=== PATIENT | female | born 1935 | race Caucasian/White ===

== ENCOUNTER 2017-10-28 23:50 | Emergency (ER) | payer MEDICARE, OTHER ==
[2017-10-29] MEDS ORDERED: LORazepam 0.5 MG Tab PO ONE (00:39)
--- NOTE | 2017-10-29 00:44 | EDM.PDOC ---
ED HPI GENERAL MEDICAL PROBLEM - General Chief Complaint: ENT Problem Stated Complaint: NOSE BLEED Time Seen by Provider: 10/29/17 00:25 Source of Information: Reports: Patient, Family, Old Records, RN History Limitations: Reports: No Limitations - History of Present Illness INITIAL COMMENTS - FREE TEXT/NARRATIVE: 82 yo female on warfarin presents with R sided nose bleed that began after she was in bed tonight. Her INR last Fri was about 3.3 and her BP was in the 130's. She held a dose of her warfarin after that appt last Friday. She has not missed any of her meds for BP. Here with family for eval of a nose bleed of about 20 minutes duration. 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) (nose pinching, no benefit) Denies Pain Score (Numeric/FACES): 0 - Related Data Allergies Allergy/AdvReac Type Severity Reaction Status Date / Time No Known Allergies Allergy Verified 10/29/17 00:08 Home Meds: Home Meds Acetaminophen 650 mg PO Q4H PRN 10/29/17 [History] Ascorbic Acid [Vitamin C] 500 mg PO DAILY 10/29/17 [History] Biotin 5 mg PO DAILY 10/29/17 [History] Calcium Carbonate/Vitamin D3 [Calcium 600 + Vit D 200] 1 each PO DAILY 10/29/17 [History] Furosemide 60 mg PO DAILY 10/29/17 [History] Lisinopril 10 mg PO DAILY 10/29/17 [History] Metoprolol Succinate [Toprol XL 100mg] 100 mg PO DAILY 10/29/17 [History] Potassium Chloride 20 meq PO DAILY 10/29/17 [History] Ranitidine HCl [Ranitidine] 150 mg PO DAILY 10/29/17 [History] Verapamil HCl [Verapamil Sr] 240 mg PO DAILY 10/29/17 [History] Warfarin [Coumadin] 3.75 mg PO DAILY 10/29/17 [History] atorvaSTATin [Lipitor] 80 mg PO DAILY 10/29/17 [History] traMADol [Ultram] 1 - 2 tab PO BEDTIME PRN 10/29/17 [History] Past Medical History HEENT History: Reports: Glaucoma, Impaired Vision, Retinal Detachment Cardiovascular History: Reports: Afib, High Cholesterol, Hypertension Respiratory History: Reports: Other (See Below) Other Respiratory History: recent pneumonia in September Gastrointestinal History: Reports: Other (See Below) Other Gastrointestinal History: reflux PASTRY SOUS CHEF History: Reports: Musculoskeletal History: Reports: Arthritis, Fracture, Osteoporosis Other Musculoskeletal History: leg Endocrine/Metabolic History: Reports: Diabetes, Type II, Obesity/BMI 30+ Hematologic History: Reports: Blood Transfusion(s) Oncologic (Cancer) History: Reports: Basal Cell Carcinoma, Bladder, Renal - Infectious Disease History Infectious Disease History: Reports: Chicken Pox, Measles, Mumps, Shingles - Past Surgical History HEENT Surgical History: Reports: Cataract Surgery GI Surgical History: Reports: Colonoscopy Female Surgical History: Reports: Nephrectomy, Other (See Below) Other Female Surgeries/Procedures: Bladder AND RENAL CA Musculoskeletal Surgical History: Reports: Knee Replacement Dermatological Surgical History: Reports: Skin Biopsy Social & Family History - Tobacco Use Smoking Status *Q: Never Smoker Second Hand Smoke Exposure: No - Caffeine Use Caffeine Use: Reports: Soda, Tea - Recreational Drug Use Recreational Drug Use: No ED ROS ENT - Review of Systems Review Of Systems: See Below Constitutional: Reports: No Symptoms HEENT: Reports: Nosebleed Respiratory: Reports: No Symptoms Cardiovascular: Reports: No Symptoms GI/Abdominal: Reports: No Symptoms Skin: Reports: No Symptoms Neurological: Reports: No Symptoms ED EXAM, ENT - Physical Exam Exam: See Below Exam Limited By: No Limitations General Appearance: Alert, WD/WN, No Apparent Distress Eye Exam: Bilateral Eye: Normal Inspection Ears: Normal External Exam, Normal Canal, Hearing Grossly Normal Nose: Active Bleeding. No: Normal Inspection, No Blood, Clear Rhinorrhea Mouth/Throat: Other (blood seen coming from nasopharynx and going down her throat.) Head: Atraumatic, Normocephalic Neck: Normal Inspection Respiratory/Chest: No Respiratory Distress, Lungs Clear, Normal Breath Sounds, No Accessory Muscle Use Cardiovascular: Regular Rate, Rhythm, No Edema Extremities: Normal Inspection Neurological: Alert, Oriented, CN II-XII Intact, Normal Cognition, No Motor/ Sensory Deficits Psychiatric: Normal Affect, Normal Mood Skin: Warm, Dry, Intact, Normal Color, No Rash Lymphatic: No Adenopathy Course - Vital Signs Text/Narrative:: RhinoRocket 7.5 cm placed in R nares. Last Recorded V/S: Last Vital Signs Temp 36.3 C 10/29/17 00:10 Pulse 63 10/29/17 00:10 Resp 16 10/29/17 00:10 BP 181/78 H 10/29/17 01:11 Pulse Ox 95 10/29/17 00:10 - Orders/Labs/Meds Labs: Laboratory Tests 10/29/17 Range/Units 00:30 PT 37.5 H (9.5-12.0) sec INR 3.67 H (0.80-1.20) Meds: Medications Discontinued Medications Generic Name Dose Route Start Last Admin Trade Name Lin PRN Reason Stop Dose Admin Clonidine HCl 0.1 mg 10/29/17 01:07 10/29/17 01:11 Catapres PO 10/29/17 01:08 0.1 mg ONETIME ONE Administration Lorazepam 0.5 mg 10/29/17 00:39 10/29/17 00:42 Ativan PO 10/29/17 00:40 0.5 mg ONETIME ONE Administration Departure - Departure Time of Disposition: 01:41 Disposition: Home, Self-Care 01 Condition: Fair Clinical Impression: Posterior epistaxis, Supratherapeutic INR HTN (hypertension) Qualifiers: Hypertension type: unspecified Qualified Code(s): I10 - Essential (primary) hypertension - Discharge Information *PRESCRIPTION DRUG MONITORING PROGRAM REVIEWED*: Not Applicable *COPY OF PRESCRIPTION DRUG MONITORING REPORT IN PATIENT TAINA: Not Applicable Instructions: Nosebleed, [id number] Referrals: PCP,None [Primary Care Provider] - Forms: ED Department Discharge Additional Instructions: Hold your warfarin until after you are seen in the clinic for removal of your RhinoRocket. Continue all your other medications as currently. Return here as needed. Recommend recheck for removal of RhinoRocket in clinic either afternoon or Friday, call for an appt.
[2017-10-29] MEDS ORDERED: cloNIDine 0.1 MG Tab PO ONE (01:07)
== END 2017-10-29 02:05 | disposition home or self-care (01) ==
LOC: JP.ED 23:50
DX: R04.0 Epistaxis (principal); I10 Essential (primary) hypertension; I48.91 Unspecified atrial fibrillation; E78.00 Pure hypercholesterolemia, unspecified; Z79.899 Other long term (current) drug therapy; Z79.01 Long term (current) use of anticoagulants
CPT/HCPCS: 30905; 36415; 85610; 99284; A9270